=== PATIENT | female | born 1985 | race Caucasian/White ===

== ENCOUNTER 2024-06-20 14:26 | Emergency (ER) | payer OTHER ==
[~2024-06-20] VITALS: Ht 157.5 cm; Wt 74.8 kg
[2024-06-20 14:43] VITALS: BP 118/89; PULSE 96; RESP 18; TEMP 98.2; O2SAT 97
[2024-06-20] MEDS: IBUPROFEN 600 MG TAB PO ONE (16:03)
[2024-06-20] MEDS ORDERED: NAPR-1704 PO (16:19)
[2024-06-20 16:25] VITALS: BP 118/89; PULSE 96; RESP 18; TEMP 98.2; O2SAT 97
== END 2024-06-20 16:26 | disposition home or self-care (01) ==
LOC: MED 14:26
DX: S63.501A Unspecified sprain of right wrist, initial encounter (principal); G56.01 Carpal tunnel syndrome, right upper limb; Z79.899 Other long term (current) drug therapy; X58.XXXA Exposure to other specified factors, initial encounter; Y92.89 Other specified places as the place of occurrence of the external cause; Y93.89 Activity, other specified; Y99.8 Other external cause status
CPT/HCPCS: 73110; 99283